=== PATIENT | male | born 1975 | race Caucasian/White ===

== ENCOUNTER 2017-06-02 06:57 | Emergency (ER) | payer BC ==
[~2017-06-02] VITALS: Ht 157.5 cm; Wt 55.0 kg
[2017-06-02] MEDS ORDERED: METFORMIN850 MG PO (07:07)
[2017-06-02] MEDS ORDERED: GLIPIZIDE XL5 MG PO (07:07)
[2017-06-02] MEDS ORDERED: TORADOL PO (08:23)
[2017-06-02 08:34] VITALS: BP 132/90
== END 2017-06-02 08:42 | disposition home or self-care (01) | DRG 554 ==
LOC: ED 06:57
DX: M19.012 Primary osteoarthritis, left shoulder (principal); E11.9 Type 2 diabetes mellitus without complications